=== PATIENT | male | born 1955 | race Caucasian/White ===

== ENCOUNTER 2020-08-07 11:17 | Emergency (ER) | payer MEDICARE ==
[2020-08-07 11:23] VITALS: RESP 18
[2020-08-07] MEDS ORDERED: SODIUM CHLORIDE 0.9% 500 ML 500 ML IV STA (11:37)
[2020-08-07 12:00] LABS: ALT 25 U/L (4-49); AST 38 U/L (17-59); African American GFR (CKD) >90 (>60 ml/min/1.73 sqM); Albumin 4.9 g/dL (3.5-5.0); Alkaline Phosphatase 71 U/L (38-126); Anion Gap 8 mmol/L; Blood Urea Nitrogen 22 mg/dL (9-20); Calcium 10.1 mg/dL (8.4-10.2); Carbon Dioxide 25 mmol/L (22-30); Chloride 106 mmol/L (98-107); Glucose 114 mg/dL (74-99); Magnesium 2.1 mg/dL (1.6-2.3); Non-African American GFR(CKD) >90 (>60 ml/min/1.73 sqM); Potassium 4.2 mmol/L (3.5-5.1); Sodium 139 mmol/L (137-145); Total Bilirubin 0.7 mg/dL (0.2-1.3)
--- NOTE | 2020-08-07 12:04 | XR ---
EXAMINATION TYPE: XR chest 2V DATE OF EXAM: 08/07/2020 COMPARISON: NONE HISTORY: Shortness of breath TECHNIQUE: Frontal and lateral views of the chest are obtained. FINDINGS: Scattered senescent parenchymal changes noted. Hyperinflation compatible with COPD. No evidence for infiltrate. No evidence for atelectasis. Heart size is stable. Mediastinal structures are stable and grossly unremarkable. No evidence for hilar prominence. Degenerative changes dorsal spine. IMPRESSION: 1. No evidence for acute pulmonary disease.
--- NOTE | 2020-08-07 12:27 | ED ---
General Adult HPI - General Chief complaint: Arrhythmia/Palpitations Stated complaint: Chest pain Time Seen by Provider: 08/07/20 11:20 Source: patient, RN notes reviewed, old records reviewed Mode of arrival: ambulatory Limitations: no limitations - History of Present Illness Initial comments: This is a 65-year-old male who presents emergency Department complaining that he feels a fluttering in his chest every once a while. Patient states his been o ngoing since afternoon he continues today. Patient states she's nonsmoker does not drink and doesn't any drugs. Patient denies any chest pain or pressure. Patient denies any difficulty breathing shortness of breath per patient denies any recent fever chills per patient denies nausea vomiting diarrhea. Patient states his been constant since yesterday and he is never had a similar episode in the past. Patient states he feels when it occurs and it was away until the next time it occurs it seems to be coming multiple times every minute denies any swelling to the legs or calf tenderness. - Related Data Home Medications Medication Instructions Recorded Confirmed No Known Home Medications 08/07/20 08/07/20 Allergies Allergy/AdvReac Type Severity Reaction Status Date / Time No Known Allergies Allergy Verified 08/07/20 12:25 Review of Systems ROS Statement: Those systems with pertinent positive or pertinent negative responses have been documented in the HPI. ROS Other: All systems not noted in ROS Statement are negative. Past Medical History Past Medical History: No Reported History Past Surgical History: Back Surgery, Joint Replacement, Orthopedic Surgery Additional Past Surgical History / Comment(s): L arm x 2, B shoulder reconstruction Past Psychological History: No Psychological Hx Reported Smoking Status: Former smoker Past Alcohol Use History: None Reported Past Drug Use History: Marijuana General Exam - General Exam Comments Initial Comments: GENERAL: Patient is well-developed and well-nourished. Patient is nontoxic and well- hydrated and is in no acute distress. ENT: Neck is soft and supple. No significant lymphadenopathy is noted. Oropharynx is clear. Moist mucous membranes. Neck has full range of motion without eliciting any pain. EYES: The sclera were anicteric and conjunctiva were pink and moist. Extraocular movements were intact and pupils were equal round and reactive to light. Eyelids were unremarkable. PULMONARY: Unlabored respirations. Good breath sounds bilaterally. No audible rales rhonchi or wheezing was noted. CARDIOVASCULAR: There is a regular rate and rhythm without any murmurs gallops or rubs. Patient has occasional extrasystole. ABDOMEN: Soft and nontender with normal bowel sounds. SKIN: Skin is clear with no lesions or rashes and otherwise unremarkable. NEUROLOGIC: Patient is alert and oriented x3. Cranial nerves II through XII are grossly intact. Motor and sensory are also intact. Normal speech, volume and content. Symmetrical smile. MUSCULOSKELETAL: Normal extremities with adequate strength and full range of motion. No lower extremity swelling or edema. No calf tenderness. LYMPHATICS: No significant lymphadenopathy is noted PSYCHIATRIC: Normal psychiatric evaluation. Limitations: no limitations Course Vital Signs 08/07/20 08/07/20 08/07/20 11:19 12:30 13:20 Temperature 97.9 F 98.1 F Pulse Rate 79 70 66 Respiratory 18 18 18 Rate Blood Pressure 150/97 124/85 118/79 O2 Sat by Pulse 98 97 96 Oximetry Medical Decision Making - Medical Decision Making First EKG showed normal sinus rhythm at 74 bpm [place] interval is 158 QRSs 86 QT interval 394 QTC is 437. Patient's EKG shows no ST segment elevation or depression. I can see visible PVCs on the rhythm strips I got another EKG to see if I can get from another EKG and I did the second EKG shows a sinus rhythm with frequent PVCs at 77 bpm [place] interval is 160 QRS is 86 QT interval 42 QTC is 454. Patient's EKG shows no ST segment elevation or depression. No prior chest x-ray shows no acute abnormality. - Lab Data Result diagrams: 08/07/20 11:40 08/07/20 11:40 Lab Results 08/07/20 08/07/20 08/07/20 Range/Units 11:40 11:40 11:40 WBC 5.8 (3.8-10.6) k/uL RBC 5.12 (4.30-5.90) m/uL Hgb 16.0 (13.0-17.5) gm/dL Hct 49.8 (39.0-53.0) % MCV 97.1 (80.0-100.0) fL MCH 31.2 (25.0-35.0) pg MCHC 32.1 (31.0-37.0) g/dL RDW 13.2 (11.5-15.5) % Plt Count 267 (150-450) k/uL Neutrophils % 52 % Lymphocytes % 37 % Monocytes % 7 % Eosinophils % 1 % Basophils % 1 % Neutrophils # 3.0 (1.3-7.7) k/uL Lymphocytes # 2.1 (1.0-4.8) k/uL Monocytes # 0.4 (0-1.0) k/uL Eosinophils # 0.1 (0-0.7) k/uL Basophils # 0.1 (0-0.2) k/uL PT 9.7 (9.0-12.0) sec INR 0.9 (<1.2) APTT 24.7 (22.0-30.0) sec Sodium 139 (137-145) mmol/L Potassium 4.2 (3.5-5.1) mmol/L Chloride 106 (98-107) mmol/L Carbon Dioxide 25 (22-30) mmol/L Anion Gap 8 mmol/L BUN 22 H (9-20) mg/dL Creatinine 0.89 (0.66-1.25) mg/dL Est GFR (CKD-EPI)AfAm >90 (>60 ml/min/1.73 sqM) Est GFR (CKD-EPI)NonAf >90 (>60 ml/min/1.73 sqM) Glucose 114 H (74-99) mg/dL Calcium 10.1 (8.4-10.2) mg/dL Magnesium 2.1 (1.6-2.3) mg/dL Total Bilirubin 0.7 (0.2-1.3) mg/dL AST 38 (17-59) U/L ALT 25 (4-49) U/L Alkaline Phosphatase 71 (38-126) U/L Troponin I (0.000-0.034) ng/mL Total Protein 8.0 (6.3-8.2) g/dL Albumin 4.9 (3.5-5.0) g/dL TSH 1.600 (0.465-4.680) mIU/L 08/07/20 Range/Units 11:40 WBC (3.8-10.6) k/uL RBC (4.30-5.90) m/uL Hgb (13.0-17.5) gm/dL Hct (39.0-53.0) % MCV (80.0-100.0) fL MCH (25.0-35.0) pg MCHC (31.0-37.0) g/dL RDW (11.5-15.5) % Plt Count (150-450) k/uL Neutrophils % % Lymphocytes % % Monocytes % % Eosinophils % % Basophils % % Neutrophils # (1.3-7.7) k/uL Lymphocytes # (1.0-4.8) k/uL Monocytes # (0-1.0) k/uL Eosinophils # (0-0.7) k/uL Basophils # (0-0.2) k/uL PT (9.0-12.0) sec INR (<1.2) APTT (22.0-30.0) sec Sodium (137-145) mmol/L Potassium (3.5-5.1) mmol/L Chloride (98-107) mmol/L Carbon Dioxide (22-30) mmol/L Anion Gap mmol/L BUN (9-20) mg/dL Creatinine (0.66-1.25) mg/dL Est GFR (CKD-EPI)AfAm (>60 ml/min/1.73 sqM) Est GFR (CKD-EPI)NonAf (>60 ml/min/1.73 sqM) Glucose (74-99) mg/dL Calcium (8.4-10.2) mg/dL Magnesium (1.6-2.3) mg/dL Total Bilirubin (0.2-1.3) mg/dL AST (17-59) U/L ALT (4-49) U/L Alkaline Phosphatase (38-126) U/L Troponin I <0.012 (0.000-0.034) ng/mL Total Protein (6.3-8.2) g/dL Albumin (3.5-5.0) g/dL TSH (0.465-4.680) mIU/L Disposition Clinical Impression: Palpitations, Ventricular premature beats Disposition: HOME SELF-CARE Instructions (If sedation given, give patient instructions): Heart Palpitations (ED), Premature Ventricular Contractions (ED) Is patient prescribed a controlled substance at d/c from ED?: No Referrals: Willi Pang III, MD [Primary Care Provider] - 1-2 days Time of Disposition: 12:55
[2020-08-07 12:31] LABS: Basophils # (A) 0.1 k/uL (0-0.2); Basophils % (A) 1 %; Eosinophils # (A) 0.1 k/uL (0-0.7); Eosinophils % (A) 1 %; HCT 49.8 % (39.0-53.0); Lymphocytes # (A) 2.1 k/uL (1.0-4.8); Lymphocytes % (A) 37 %; MCH 31.2 pg (25.0-35.0); MCHC 32.1 g/dL (31.0-37.0); MCV 97.1 fL (80.0-100.0); Mean Platelet Volume 6.9; Monocytes # (A) 0.4 k/uL (0-1.0); Monocytes % (A) 7 %; Neutrophils % (A) 52 %; Platelet Count 267 k/uL (150-450); RBC 5.12 m/uL (4.30-5.90); RDW 13.2 % (11.5-15.5); WBC 5.8 k/uL (3.8-10.6)
[2020-08-07 12:32] LABS: INR 0.9 (<1.2); Partial Thromboplastin Time 24.7 sec (22.0-30.0); Prothrombin Time 9.7 sec (9.0-12.0)
[2020-08-07 13:22] VITALS: BP 118/79; PULSE 66; TEMP 98.1
== END 2020-08-07 13:21 | disposition home or self-care (01) ==
LOC: EC 11:17
DX: I49.3 Ventricular premature depolarization (principal); R07.9 Chest pain, unspecified; R00.2 Palpitations; Z87.891 Personal history of nicotine dependence
CPT/HCPCS: 36415; 71046; 80053; 83735; 84443; 84484; 85025; 85610; 85730; 93005; 96360; 96361; 99285

== ENCOUNTER → 2020-08-18 | Outpatient (CLI) | payer MEDICARE ==
[~2020-08-18] MED LIST: REGADENOSON 0.4 MG/5 ML SYRINGE IV ONE
--- NOTE | 2020-08-18 11:41 | EST ---
EXERCISE STRESS AGE: 65 SEX: M HT: 6 ft. WT: 140 lbs. PROTOCOL: Lexiscan STAGE: N/A DURATION OF EXERCISE: N/A HEART RATE REST: 59 BLOOD PRESSURE REST: 106/73 MAXIMUM HEART RATE ACHIEVED: 94 MAXIMUM BLOOD PRESSURE: 129/95 85% MPHR: 133 100% MPHR: 156 METS: N/A INDICATIONS: Palpitations. CLINICAL INFORMATION: EKG shows sinus rhythm, nonspecific ST-T wave changes. Patient was given intravenous Lexiscan as per protocol. Did not have chest pain or diagnostic ST-segment depression. CONCLUSION: 1. Negative stress test by EKG criteria. 2. Cardiolite portion of the stress test will be reported separately. MMODL / IJN: [id number] /
--- NOTE | 2020-08-18 15:52 | NM ---
EXAMINATION TYPE: NM stress lexiscan cardiolite DATE OF EXAM: 08/18/2020 COMPARISON: NONE HISTORY: Heart palpitations TECHNIQUE: After the intravenous administration of 9.98 mCi Tc 99m Sestamibi - Cardiolite resting SP ECT images acquired 45 minutes post injection. The patient received 0.4mg Lexiscan, 24.3 mCi Tc 99m Sestamibi - Stress images obtained [address] injection FINDINGS: No fixed or reversible perfusion defects are evident. Gated wall motion is normal. Ejection fraction of 57% is normal. IMPRESSION: 1. No stress-induced ischemic changes.
--- NOTE | 2020-08-19 11:40 | ECHOF ---
Referral Reason:R00.2 palpitations MEASUREMENTS -------- HEIGHT: 182.9 cm WEIGHT: 65.8 kg BP: RVIDd: 4.6 cm (< 3.3) IVSd: 1.0 cm (0.6 - 1.1) LVIDd: 3.1 cm (3.9 - 5.3) LVPWd: 1.4 cm (0.6 - 1.1) IVSs: 1.3 cm LVIDs: 2.1 cm LVPWs: 1.2 cm LAESV Index (A-L): 15.60 ml/m Ao Diam: 2.6 cm (2.0 - 3.7) AV Cusp: 1.8 cm (1.5 - 2.6) MV EXCURSION: 17.484 mm (> 18.000) MV EF SLOPE: 74 mm/s (70 - 150) EPSS: 0.2 cm MV E [place]: 0.81 m/s MV DecT: 215 ms MV A [place]: 0.76 m/s MV E/A Ratio: 1.06 RAP: 5.00 mmHg RVSP: 16.18 mmHg FINDINGS -------- This was a technically adequate study. The left ventricular size is normal. There is mild concentric left ventricular hypertrophy. Overa ll left ventricular systolic function is normal with, an EF between 55 - 60 %. The diastolic fillin g pattern is normal for the age of the patient 9.14. The right ventricle is moderately enlarged. Normal LA size by volume 22+/-6 ml/m2. The right atrium is mildly enlarged. Interatrial and interventricular septum intact. There is no evidence of aortic regurgitation. There is no evidence of aortic stenosis. There is trace to mild mitral regurgitation. Mild tricuspid regurgitation present. There is no evidence of pulmonary hypertension. The right v entricular systolic pressure, as measured by Doppler, is 16.18mmHg. There is no pulmonic regurgitation present. The aortic root size is normal. Normal inferior vena cava with normal inspiratory collapse consistent with estimated right atrial pre ssure of 5 mmHg. There is no pericardial effusion. CONCLUSIONS -------- 1. The left ventricular size is normal. 2. There is mild concentric left ventricular hypertrophy. 3. Overall left ventricular systolic function is normal with, an EF between 55 - 60 %. 4. The diastolic filling pattern is normal for the age of the patient 9.14 5. The right ventricle is moderately enlarged. 6. The right atrium is mildly enlarged. 7. There is trace to mild mitral regurgitation. 8. Mild tricuspid regurgitation present. EDGE DRUMMER: Angy Gavin RDCS
== END | disposition home or self-care (01) ==
LOC: RADNMMAIN 08:00
PROVIDERS: ATTEND Family Medicine
DX: R00.2 Palpitations (principal)
CPT/HCPCS: 93017; 78452; A9500; J2785; 93306

== ENCOUNTER → 2020-08-19 | Outpatient (CLI) | payer MEDICARE | END | disposition home or self-care (01) | LOC: RADECHMAIN 10:06 | PROVIDERS: ATTEND Family Medicine | DX: Z53.9 Procedure and treatment not carried out, unspecified reason (principal) ==